=== PATIENT | male | born 1965 | race Caucasian/White ===

== ENCOUNTER 2021-12-30 20:18 | Emergency (ER) | payer OTHER ==
[~2021-12-30] VITALS: Ht 175.3 cm; Wt 73.5 kg
[2021-12-30 22:45] VITALS: BP 139/80
[2021-12-30] MEDS ORDERED: OFLO5DRO5 LEFT EAR (22:57)
== END 2021-12-30 23:04 | disposition home or self-care (01) ==
LOC: ER 20:25
DX: H60.92 Unspecified otitis externa, left ear (principal); Z60.2 Problems related to living alone